=== PATIENT | male | born 2000 | race Caucasian/White ===

== ENCOUNTER 2018-09-16 18:34 | Emergency (ER) | payer OTHER ==
[2018-09-16 18:45] VITALS: PULSE 93; TEMP 99; BMI 25.8
--- NOTE | 2018-09-16 18:56 | PDOC ---
History of Present Illness - General Chief Complaint: Chest Pain Stated Complaint: CHEST PAIN Time Seen by Provider: 09/16/18 18:52 History Source: Patient, Parent(s) (Mother present at bedside.) Exam Limitations: No Limitations - History of Present Illness Initial Comments: HPI: 17 y/o male presenting to [facility] complaining of intermittent chest pain with palpitations over the past week. States the pain is localized to the anterior chest wall without radiation to arms, neck, or back. Does endorse chronic pain in left shoulder and bilateral lower back but reports these do not occur at the same time as the chest pain. Denies SOB or exertional component of pain. Unable to identify eliciting factors. Denies decreased exertional capacity, paroxysmal nocturnal dyspnea, or swelling to lower extremity. Was evaluated by PCP yesterday with a physical exam and blood work. Reportedly told everything was normal. Mother became concerned when the pts symptoms returned today, so she checked his blood pressure and found it to be elevated to 160s systolic. This finding prompted the emergent evaluation. Returned two weeks ago from a month long vacation in [place]. Denies illness or sick contacts. No recent antibiotics. PCP: Dr. Krupa Escudero Hx: - EtoH: Denies - Tobacco: Denies - Street Drugs: Denies - Caffeine: Denies daily intake Family Hx: - Denies h/o of arrhythmia, sudden , or IL <45 years old in first degree relative. Medical Hx: - Pt denies past medical history. Denies prescription medications. - Takes Centrum vitamins. Denies other vitamins, supplements, or essential oils. Surgical Hx: - Pt denies past surgical history. Past History - Past Medical History Allergies/Adverse Reactions: Allergies Allergy/AdvReac Type Severity Reaction Status Date / Time No Known Allergies Allergy Verified 11/11/12 18:02 Home Medications: Ambulatory Orders NK [No Known Home Medication] 09/16/18 Asthma: Yes (childhood) COPD: No - Immunization History Immunization Up to Date: Yes - Suicide/Smoking/Psychosocial Hx Smoking Status: No Smoking History: Current some day smoker Number of Cigarettes Smoked Daily: 0 Information on smoking cessation initiated: No Hx Alcohol Use: No Drug/Substance Use Hx: Yes Review of Systems - Review of Systems Able to Perform ROS?: Yes Comments:: In addition to that documented in the HPI above, the additional ROS was obtained : Constitutional: Denies fevers, chills, or syncope Eyes: Denies vision changes ENMT: Denies sore throat CV: Per HPI Resp: Denies SOB GI: Denies vomiting or diarrhea : Denies painful urination MSK: Denies recent trauma Skin: Denies new rashes Neuro: Denies new numbness or tingling or weakness Endocrine: Denies polyuria Heme: Denies bleeding or bruising *Physical Exam - Vital Signs Last Vital Signs Temp Pulse Resp BP Pulse Ox 99 F 93 H 16 155/108 H 100 09/16/18 18:43 09/16/18 18:43 09/16/18 18:43 09/16/18 18:43 09/16/18 18:43 - Physical Exam Comments: Constitutional: Well-developed, well-nourished, non-toxic adult male in no acute distress or obvious discomfort. Found semi-fowlers on hospital bed. Alert and oriented x4. Answered all questions appropriately and completely. Speech was non-labored, non-pressured. Head: Normocephalic. No obvious external signs of trauma. Eyes: Sclerae white. Ears: Hearing grossly intact. Nose: No nasal discharge. Neck: Supple, trachea is midline. Cardiovascular / Chest: Regular rate and regular rhythm. No murmur, rubs, clicks, or gallops. Peripheral pulses: radial pulses full. No chest wall tenderness to palpation. Respiratory: Breathing unlabored. Equal chest rise and fall. Clear to auscultation bilaterally. No stridor, no wheezing, no rhonchi. Gastrointestinal: abdomen is soft, non-tender, non-distended. No overlying skin lesions or obvious signs of trauma. Neuro: Alert and oriented. Moving all four extremities spontaneously. Skin: Warm, dry, and intact. Ext: Normal active and passive ROM of R and L upper extremities. No pain in left shoulder with lift off test, empty beer can test, or infraspinatus scapular rotation test. Psych: Affect: appropriate. Mood: normal. Moderate Sedation - Procedure Monitoring Vital Signs: Procedure Monitoring Vital Signs Temperature 99 F 09/16/18 18:43 Pulse Rate 93 H 09/16/18 18:43 Respiratory Rate 16 09/16/18 18:43 Blood Pressure 155/108 H 09/16/18 18:43 O2 Sat by Pulse Oximetry (%) 100 09/16/18 18:43 ED Treatment Course - LABORATORY CBC & Chemistry Diagram: 09/16/18 20:10 09/16/18 20:10 Medical Decision Making - Medical Decision Making *Reviewed vital signs, nursing notes, and prior visit documentation (if available). 17 y/o male presenting with brief, intermittent chest pain x1 week. No significant personal or familial cardiac history. Vitals remarkable for hypertension without tachycardia. Will trend and evaluate for end organ damage. Low suspicion for cardiac or thyroid etiology. Suspect pleurisy versus anxiety symptoms. Will obtain EKG, CXR, Troponin, TSH, and basic labs. EKG revealed a sinus rhythm without ectopy. CBC unremarkable for anemia or leukocytosis. BMP unremarkable for electrolyte derangement. eGFR >60. TSH within normal limits. Low suspicion for hyper or hypothyroid etiology. CXR unremarkable for acute cardiopulmonary process per ED wet read. Radiology report to follow. Pt reported recent increase in life stressors to ED attending. Pt reassessed. Reports no further chest pain while in the department. Repeat BP remained elevated but trended downward from initial measurement. Discussed imaging and laboratory results with pt. Answered all questions. Provided return precautions. Pt expressed verbal understanding and agreement with plan to discharge home with outpatient follow up. Also provided outpatient cardiology referral. *DC/Admit/Observation/Transfer Diagnosis at time of Disposition: Atypical chest pain - Discharge Dispostion Disposition: HOME Condition at time of disposition: Good Decision to Admit order: No - Referrals Referrals: Finn Thomas MD [Primary Care Provider] - Rosa Maria Pascal MD [Staff Physician] - - Patient Instructions Printed Discharge Instructions: DI for Atypical Chest Pain Additional Instructions: You were seen today for chest pain in the center of your chest for the past week. Your EKG, chest xray, and blood work were normal. Your pain is likely something called pleurisy. It is not life threatening. The pain could also be from anxiety. Your blood pressure was elevated during todays visit. It was not in the emergent range. This is not likely the cause of your symptoms. You need to follow up with your primary care doctor to have your blood pressure checked again in the next 3-4 days. You will need to call to make an appointment. The number is included in this packet. A copy of todays results are attached to this packet. Take it to the appointment so your doctor can review them. Go to the nearest emergency department if your condition worsens or you feel like you need additional emergency evaluation. Print Language: YAKUT - Post Discharge Activity
[2018-09-16 20:29] LABS: BASO % 0.4 % (0-2.0); EOS % 0.3 % (0-4.5); HEMATOCRIT 42.9 % (35.4-49); HEMOGLOBIN 15.3 GM/dL (11.7-16.9); LYMPH % 13.5 % (8-40); MCH 30.4 pg (25.7-33.7); MCHC 35.6 g/dl (32.0-35.9); MEAN CELL VOLUME 85.3 fl (80-96); MEAN PLT VOLUME 9.3 fl (7.5-11.1); MONO % 5.6 % (3.8-10.2); NEUT % 80.2 % (42.8-82.8); PLATELET COUNT 284 K/MM3 (134-434); RBC 5.03 M/mm3 (4.00-5.60); RDW 12.3 % (11.9-15.9); WHITE BLOOD COUNT 10.1 K/mm3 (4.0-10.0)
[2018-09-16 20:53] LABS: ANION GAP 8 MMOL/L (8-16); BLOOD UREA NITROGEN 9 mg/dL (7-18); CALCIUM 9.7 mg/dL (8.5-10.1); CHLORIDE 108 mmol/L (98-107); CO2 24 mmol/L (21-32); CREATININE 0.9 mg/dL (0.55-1.3); GLUCOSE,RANDOM 96 mg/dL (74-106); POTASSIUM 3.6 mmol/L (3.5-5.1); SODIUM 140 mmol/L (136-145)
--- NOTE | 2018-09-16 20:54 | PDOC ---
Attending Attestation - Resident Resident Name: Andrew Rachel - ED Attending Attestation I have performed the following: I have examined & evaluated the patient, The case was reviewed & discussed with the resident, I agree w/resident's findings & plan - HPI HPI: 09/16/18 20:43 Healthy 17-year-old male with no severe past medical history presents for evaluation of 2-3 weeks of intermittent chest pain. The pain is described as sharp, random in occurrence, last seconds to minutes, localized to left chest. Associated occasionally with palpitations, hand tingling, and stress/anxiety. She was recently in [place] and admits to some personal stressors in his life, has been feeling quite anxious lately in the setting of these symptoms. Has no exertional complaints, no exercise limitations, no symptoms of DVT given his recent travel. Denies any smoking, alcohol, drugs. Mom checked his blood pressure and noted to be slightly elevated to the 150s. He saw his art historian yesterday and had blood work but does not know the results yet, tonight in the setting of another episode his blood pressure was still elevated in the 150s so they present to the emergency department for evaluation. Currently chest pain-free but feeling anxious. Denies any SI/HI/AH/VH. - Physicial Exam PE: 09/16/18 20:45 Blood pressure 150/100 and triage, vitals otherwise normal Patient is well-appearing, conversant, but anxious and became slightly tearful during history Thyroid is normal, no JVD Heart is regular without murmurs, lungs are clear Abdomen benign Neurologically intact No calf tenderness or swelling Psych exam, other than anxiety, is normal, good eye contact, smiling, just anxious. - Medical Decision Making 09/16/18 20:54 17y/o M with atypical chest pain/palpitations for 2 weeks, no red flags on history/PE. Sxs in the setting of anxiety and stressors, which is likely the underlying cause. No acute depression/psych issues. EKG normal, IRBBB without ischemia given labs drawn by art historian not resulted, will check labs here including TSH cxr reassurance. BP likely elevated 2/2 anxiety, counseled on follow-up. Has PCP closely involved, should have cards referral for echo if above wnl. Heart Score/ECG Review #1 General ECG Interpretation: Sinus Rhythm, Normal Rate (93), Normal Intervals ( qtc 410, IRBBB), No acute ischemic changes
[2018-09-16 21:11] VITALS: BP 142/99
--- NOTE | 2018-09-17 10:28 | EKG ---
Test Reason : Blood Pressure : / mmHG Vent. Rate : 093 BPM Atrial Rate : 093 BPM P-R Int : 130 ms QRS Dur : 102 ms QT Int : 330 ms P-R-T Axes : 078 043 052 degrees QTc Int : 410 ms NORMAL SINUS RHYTHM WITH SINUS ARRHYTHMIA NORMAL ECG NO PREVIOUS ECGS AVAILABLE Confirmed by ELVIS POTTER MD ([id number]) on 09/17/2018 10:28:12 AM Referred By: Confirmed By:ELVIS POTTER MD
== END 2018-09-16 21:10 | disposition home or self-care (01) ==
LOC: JER 18:34
DX: R07.89 Other chest pain (principal)
CPT/HCPCS: 36415; 71046-TC-FY; 80048; 84443; 84484; 85025; 93005; 93010; 99284-25